=== PATIENT | male | born 1995 | race Caucasian/White ===

== ENCOUNTER 2016-10-12 18:42 | Emergency (ER) | payer BC ==
[2016-10-12] MEDS ORDERED: cefTRIAXone VIAL(*) 250 MG VIAL IM ONE (21:24)
[2016-10-12] MEDS ORDERED: Azithromycin TAB* 250 MG PO ONE (21:25)
[2016-10-12] MEDS ORDERED: cefTRIAXone VIAL(*) 1,000 MG VIAL ONE (21:48)
[2016-10-12] MEDS ORDERED: Lidocaine 1%* 5 ML VIAL ONE (21:49)
--- NOTE | 2016-10-12 22:05 | UC ---
Complaint Male HPI - HPI Summary HPI Summary: BURNING WITH URINATION FOR TWO DAYS, NO PENILE DISCHARGE, NO PENILE OR SCROTAL LESIONS. HAS HAD UNPROTECTED SEX WITH TWO NEW PARTNERS OVER THE LAST THREE WEEKS. NO BACK PAIN. NO FEVER. NO ABDOMINAL PAIN - History of Current Complaint Chief Complaint: UCGU Stated Complaint: URINARY Time Seen by Provider: 10/12/16 20:54 Hx Obtained From: Patient Onset/Duration: Sudden Onset, Lasting Days, Still Present Timing: Intermittent Severity Initially: Mild Severity Currently: Moderate Location: Penis Character: Burning Aggravating Factor(s): Voiding Alleviating Factor(s): Nothing Associated Signs And Symptoms: Positive: Dysuria. Negative: Diaphoresis, Back Pain, Fever, Hematuria, Constipation, Blood in Stool, Rectal Pain, Nausea, Vomiting(# Of Episodes =), Penile Swelling, Penile Discharge - Risk Factors Testicular Torsion: Negative - Allergies/Home Medications Allergies/Adverse Reactions: Allergies Allergy/AdvReac Type Severity Reaction Status Date / Time No Known Allergies Allergy Verified 10/12/16 20:02 Home Medications: Home Medications NK [No Home Medications Reported] 10/12/16 [History Confirmed 10/12/16] PMH/Surg Hx/FS Hx/Imm Hx Previously Healthy: Yes - Surgical History Surgical History: Yes Surgery Procedure, Year, and Place: Left hand 2012. left knee 2012 - Family History Known Family History: Negative: Renal Disease - Social History Occupation: Employed Part-time Lives: Alone Alcohol Use: Weekly Substance Use Type: None Smoking Status (MU): Never Smoked Tobacco Review of Systems Constitutional: Negative Skin: Negative Eyes: Negative ENT: Negative Respiratory: Negative Cardiovascular: Negative Gastrointestinal: Negative Genitourinary: Dysuria, Frequency, Urgency Motor: Negative Neurovascular: Negative Musculoskeletal: Negative Neurological: Negative Psychological: Negative All Other Systems Reviewed And Are Negative: Yes Physical Exam Triage Information Reviewed: Yes Appearance: Well-Appearing, No Pain Distress, Well-Nourished Vital Signs: Initial Vital Signs Temp 98.7 F 10/12/16 19:56 Pulse 90 10/12/16 19:56 Resp 17 10/12/16 19:56 BP 140/77 10/12/16 19:56 Pulse Ox 100 10/12/16 19:56 Vital Signs Reviewed: Yes Eye Exam: Normal ENT Exam: Normal ENT: Positive: Normal ENT inspection, Hearing grossly normal, Pharynx normal, TMs normal Dental Exam: Normal Neck exam: Normal Neck: Positive: Supple, Nontender, No Lymphadenopathy Respiratory Exam: Normal Respiratory: Positive: Chest non-tender, Lungs clear, Normal breath sounds, No respiratory distress Cardiovascular Exam: Normal Cardiovascular: Positive: RRR, No Murmur, Pulses Normal Abdominal Exam: Normal Abdomen Description: Positive: Nontender, No Organomegaly, Soft. Negative: CVA Tenderness (R), CVA Tenderness (L) Musculoskeletal Exam: Normal Musculoskeletal: Positive: Strength Intact, ROM Intact Neurological Exam: Normal Psychological Exam: Normal Skin Exam: Normal Complaint Male Course/Dx - Differential Dx/Diagnosis Differential Diagnosis/HQI/PQRI: Prostatitis, Testicular Torsion, Urinary Tract Infection Provider Diagnoses: DYSURIA. STD PROPHYLAXIS Discharge - Discharge Plan Condition: Stable Disposition: HOME Patient Education Materials: Sexually Transmitted Diseases (ED) Referrals: Non Staff,Doctor [Primary Care Provider] -
== END 2016-10-12 22:24 | disposition home or self-care (01) ==
LOC: UCCORT 18:42
DX: R30.0 Dysuria (principal); Z11.3 Encounter for screening for infections with a predominantly sexual mode of transmission; Z11.4 Encounter for screening for human immunodeficiency virus [HIV]
CPT/HCPCS: 36415; 81003; 86703; 87491; 87591; 96372; 99202; A9270-GY; G0463; J0696